=== PATIENT | male | born 1960 | race Caucasian/White ===

== ENCOUNTER 2023-07-17 17:36 | Emergency (ER) | payer SELFPAY ==
[~2023-07-17] VITALS: Ht 172.7 cm; Wt 75.0 kg
[2023-07-17] MEDS ORDERED: ACETAMINOPHEN 325MG TABLET PO ONE (17:45)
[2023-07-17 19:19] VITALS: TEMP 98
[2023-07-17 19:37] LABS: HEMATOCRIT. 47.3 % (42.0-52.0); HEMOGLOBIN. 16.4 g/dL (14.0-18.0); MEAN CORPUSCULAR HGB CONC 34.6 g/dL (31.0-37.0); MEAN CORPUSCULAR VOLUME 104.2 fL (80.0-94.0); MEAN PLATELET VOLUME 8.1 fl (7.4-10.4); PLATELET 285 x1000/uL (130-400); RED BLOOD CELL COUNT 4.54 mill/uL (4.7-6.1); RED CELL DISTRIBUTION WIDTH 14.8 % (11.6-14.6)
[2023-07-17 19:41] LABS: CHLORIDE 103 mEq/L (98-107); POTASSIUM 4.3 mEq/L (3.5-5.1); SODIUM 134 mEq/L (136-145)
[2023-07-17 19:42] LABS: CARBON DIOXIDE 25 mEq/L (21-32)
[2023-07-17 19:43] LABS: CALCIUM 8.9 mg/dL (8.7-10.4)
[2023-07-17 19:44] LABS: DIFFERENTIAL COMMENT 1
[2023-07-17 19:47] LABS: CREATININE 0.8 mg/dL (0.6-1.3); GLUCOSE 144 mg/dL (70-105)
[2023-07-17 19:48] LABS: UREA NITROGEN BLOOD 10 mg/dL (9-23)
[2023-07-17 19:57] LABS: ETHANOL BLOOD < 10 mg/dL (<10)
[2023-07-17] MEDS: NICARDIPINE 40MG/200ML PREMIX 200 ML IV PRN (20:21)
[2023-07-17 20:30] VITALS: PULSE 135
[2023-07-17] MEDS: LORAZEPAM 2MG/ML INJ IV ONE ×2 (20:58→21:05)
[2023-07-17] MEDS: LEVETIRACETAM 1000MG PREMIX 100 ML IV ONE (20:59)
[2023-07-17] MEDS ORDERED: LEVETIRACETAM 500 MG in SODIUM CHLORIDE 0.9% 100 ML IV SCH (21:00)
[2023-07-17 21:05] LABS: PLATELET ESTIMATE NORMAL
[2023-07-17 21:06] LABS: ANISOCYTOSIS 1+
[2023-07-17 21:22] VITALS: BP 133/80; RESP 28; O2SAT 100
[2023-07-17] MEDS: SUCCINYLCHOLINE CHLORIDE 200MG/10ML IV ONE (21:22)
[2023-07-17] MEDS: IOHEXOL-350 100 ML BOTTLE IV NR (21:22)
[2023-07-17] MEDS: PROPOFOL 10MG/ML 100ML 100 ML IV ONE (21:22)
[2023-07-17] MEDS: ETOMIDATE 2MG/ML 10ML VIAL IV ONE (21:22)
[2023-07-17 22:01] LABS: PARTIAL THROMBOPLASTIN TIME 29.1 sec (23.4-31.0); PROTHROMBIN TIME 11.2 sec (9.6-11.0)
== END 2023-07-17 21:11 | disposition short-term general hospital (02) ==
LOC: ER 17:36
DX: I60.8 Other nontraumatic subarachnoid hemorrhage (principal); Q27.30 Arteriovenous malformation, site unspecified; F10.239 Alcohol dependence with withdrawal, unspecified; I10 Essential (primary) hypertension; F03.90 Unspecified dementia, unspecified severity, without behavioral disturbance, psychotic disturbance, mood disturbance, and anxiety; Y90.0 Blood alcohol level of less than 20 mg/100 ml
CPT/HCPCS: 80048; 80320; 85025; 85610; 85730; 86850; 86900; 86901; 36415; 71045; 70496; 70498; 70450; 31500; 96368; 96365; 96366; 96375; 99291; 99292; Q9967; Z7610 ×2; J1953; J2060; J2704; J7050; G0480